=== PATIENT | male | born 1985 | race African-American/Black ===

== ENCOUNTER 2016-06-05 05:54 | Emergency (ER) | payer SELFPAY ==
[~2016-06-05] VITALS: Ht 182.9 cm; Wt 77.1 kg
[2016-06-05] MEDS ORDERED: Ketorolac 30mg Inj IV ONE (06:15)
[2016-06-05 06:30] LABS: MEAN CORPUSCULAR HEMOGLOBIN 28.9 PG (27.0-31.0); MEAN CORPUSCULAR HGB CONC 33.5 G/DL (32.0-36.0); MEAN CORPUSCULAR VOLUME 86 FL (80-99); PLATELET COUNT 207 K/UL (150-450); RED BLOOD COUNT 5.14 M/UL (4.70-6.10); RED CELL DISTRIBUTION WIDTH 12.4 % (11.6-14.8); WHITE BLOOD COUNT 11.2 K/UL (4.8-10.8)
[2016-06-05] MEDS ORDERED: Morphine Sulfate 4mg/ml Inj IVP ONE ×3 (06:30→08:45)
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
[2016-06-05 07:02] LABS: ALANINE AMINOTRANSFERASE 11 U/L (3-41); ALBUMIN/GLOBULIN RATIO 1.6 (1.0-2.7); ANION GAP 21 (5-15); ASPARTATE AMINO TRANSFERASE 19 U/L (5-40); CALCIUM 9.7 mg/dL (8.6-10.2); CARBON DIOXIDE 23 mEQ/L (20-30); CHLORIDE 95 mEQ/L (98-107); CREATININE 1.1 mg/dL (0.7-1.2); GLOMERULAR FILTRATION RATE > 60 mL/min (>60); HEMOLYSIS 7; LIPASE 28 U/L (< 60); POTASSIUM 3.7 mEQ/L (3.4-4.9); SODIUM 139 mEQ/L (135-145); TOTAL PROTEIN 7.9 g/dL (6.6-8.7)
[2016-06-05] MEDS ORDERED: Pantoprazole Inj IVP ONE (07:30)
[2016-06-05] MEDS ORDERED: HYDROmorphone 1mg/ml Carpuject IVP ONE (07:30)
[2016-06-05 07:40] VITALS: BP 111/62
[2016-06-05 08:21] VITALS: BP 94/47
[2016-06-05] MEDS ORDERED: CIPROFLOXACIN500 M2 ORAL (08:44)
[2016-06-05] MEDS ORDERED: RANITIDINE HCL150 MG ORAL (08:44)
[2016-06-05] MEDS ORDERED: NORCO 5-325 TA1 EACH ORAL (08:44)
[2016-06-05] MEDS ORDERED: ZOFRAN ODT4 MG ORAL (08:44)
[2016-06-05 08:49] VITALS: BP 94/47
== END 2016-06-05 09:01 | disposition home or self-care (01) ==
LOC: EMR 06:37
DX: K29.70 Gastritis, unspecified, without bleeding (principal)
CPT/HCPCS: 36415; 80053; 83690; 85025; 96360; 96361; 96372; 96374; 96375; 99284; C9113; J1170; J1885; J2270; J2405

== ENCOUNTER 2017-03-13 16:53 | Inpatient (IN) | payer MEDICAID ==
[~2017-03-13] VITALS: Ht 185.4 cm; Wt 72.6 kg
[~2017-03-13 16:53] MED LIST: CIPROFLOXACIN500 M2 ORAL; NORCO 5-325 TA1 EACH ORAL; RANITIDINE HCL150 MG ORAL; ZOFRAN ODT4 MG ORAL
[2017-03-13] MEDS ORDERED: HYDROmorphone 1mg/ml Carpuject IVP ONE ×2 (17:15→18:30)
[2017-03-13 17:36] LABS: HEMATOCRIT 49.5 % (42.0-52.0); HEMOGLOBIN 15.3 G/DL (14.2-18.0); MEAN CORPUSCULAR VOLUME 91 FL (80-99); PLATELET COUNT 193 K/UL (150-450); RED BLOOD COUNT 5.43 M/UL (4.70-6.10); WHITE BLOOD COUNT 12.1 K/UL (4.8-10.8)
[2017-03-13 17:53] LABS: ANION GAP 14 mmol/L (5-15); BLOOD UREA NITROGEN 17 mg/dL (7-18); CALCIUM 9.6 MG/DL (8.5-10.1); CARBON DIOXIDE 26 MMOL/L (21-32); CHLORIDE 105 MMOL/L (98-107); CREATININE 1.5 MG/DL (0.55-1.30); POTASSIUM 3.5 MMOL/L (3.5-5.1); SODIUM 145 MMOL/L (136-145)
[2017-03-13 17:58] LABS: ALANINE AMINOTRANSFERASE 18 U/L (12-78); ALBUMIN 4.7 G/DL (3.4-5.0); ALBUMIN/GLOBULIN RATIO 1.2 (1.0-2.7); ALKALINE PHOSPHATASE 63 U/L (46-116); ASPARTATE AMINO TRANSFERASE 27 U/L (15-37); BILIRUBIN,TOTAL 0.7 MG/DL (0.2-1.0)
[2017-03-13 18:39] VITALS: BP 128/86
[2017-03-13] MEDS ORDERED: Miralax 17gm pkt ORAL PRN (20:00)
[2017-03-13] MEDS ORDERED: LORazepam Inj 2mg/ml 1ml IV PRN (20:00)
[2017-03-13] MEDS ORDERED: Nitroglycerin Subl 0.4mg tab SL PRN (20:00)
[2017-03-13] MEDS ORDERED: Morphine Sulfate 2mg/ml Inj IVP PRN (20:00)
[2017-03-13] MEDS ORDERED: Mylanta II UD 30ml ORAL PRN (20:00)
--- NOTE | 2017-03-13 20:18 | Emergency Room Report ---
History of Present Illness General Chief Complaint: Abdominal Pain Source: Patient Present Illness HPI 31-year-old male presents ED complaining of abdominal pain and vomiting. Has history of pancreatitis. States he was seen at [facility] 2 days ago was given pain meds and discharged. Patient states the pain is persisting and he keeps vomiting. Patient is currently 8/10, epigastric, sharp, nonradiating. No fevers or chills. Denies chest pain shortness of breath. No other aggravating relieving factors. Denies any other associated symptoms Allergies: Coded Allergies: PROCHLORPERAZINE (Verified Allergy, Unknown, 06/05/16) Patient History Past Medical History: other - pancreatitis Past Surgical History: none Pertinent Family History: none Social History: Denies: smoking, alcohol use, drug use Immunizations: UTD Reviewed Nursing Documentation: PMH: Agreed, PSxH: Agreed Nursing Documentation-PMH Hx Gastrointestinal Problems: Yes - Pancreatitis Review of Systems All Other Systems: negative except mentioned in HPI Physical Exam Vital Signs Date Time Temp Pulse Resp B/P (MAP) Pulse Ox O2 Delivery O2 Flow Rate FiO2 03/13/17 16:57 98.1 76 20 100 Room Air 03/13/17 17:08 Sp02 EP Interpretation: reviewed, normal General Appearance: alert, GCS 15, non-toxic, moderate distress Head: normocephalic, atraumatic Eyes: bilateral eye normal inspection, bilateral eye PERRL ENT: hearing grossly normal, normal pharynx, no angioedema, normal voice Neck: full range of motion, supple/symm/no masses Respiratory: chest non-tender, lungs clear, normal breath sounds, speaking full sentences Cardiovascular #1: regular rate, rhythm, no edema Cardiovascular #2: 2+ carotid (R), 2+ carotid (L), 2+ radial (R), 2+ radial (L) , 2+ dorsalis pedis (R), 2+ dorsalis pedis (L) Gastrointestinal: normal bowel sounds, soft, non-distended, no guarding, no rebound, tenderness - epigastric Rectal: deferred Genitourinary: normal inspection, no CVA tenderness Musculoskeletal: back normal, gait/station normal, normal range of motion, non- tender Neurologic: alert, oriented x3, responsive, motor strength/tone normal, sensory intact, speech normal Psychiatric: judgement/insight normal, memory normal, mood/affect normal, no suicidal/homicidal ideation Reflexes: 3+ bicep (R), 3+ bicep (L), 3+ tricep (R), 3+ tricep (L), 3+ knee (R) , 3+ knee (L) Skin: normal color, no rash, warm/dry, well hydrated Lymphatic: no adenopathy Medical Decision Making Diagnostic Impression: Primary Impression: Pancreatitis Qualified Codes: K85.90 - Acute pancreatitis without necrosis or infection, unspecified Additional Impression: ARF (acute renal failure) Qualified Codes: N17.9 - Acute kidney failure, unspecified ER Course Hospital Course 31-year-old male presents to ED with abdominal pain, vomiting Differential diagnoses include: BPH, cystitis, pyelonephritis, kidney stone Clinical course 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 After initial history and physical I ordered labs, IV fluids, UA, pain medications Labs - no leukocytosis, Hb/Hct stable. Cr 1.5. Lipase > 977 CT abdomen pelvis deferred as patient does have CT done 2 days ago at [facility] which was negative patient continues to have pain requiring additional pain medications. Case discussed with Dr. Mix and he agreed to accept the patient to his service for further care and support I feel this is a highly complex case requiring extensive working including EKG/ Rhythm strip, Xray/CT/US, Blood/urine lab work, repeat exams while in ED, and administration of strong opiates/narcotics for pain control, admission to hospital or close patient follow up. Diagnosis - pancreatitis, ARF Patient admitted to floor in serious condition Labs Test 03/13/17 17:11 White Blood Count 12.1 K/UL (4.8-10.8) Red Blood Count 5.43 M/UL (4.70-6.10) Hemoglobin 15.3 G/DL (14.2-18.0) Hematocrit 49.5 % (42.0-52.0) Mean Corpuscular Volume 91 FL (80-99) Mean Corpuscular Hemoglobin 28.2 PG (27.0-31.0) Mean Corpuscular Hemoglobin Concent 31.0 G/DL (32.0-36.0) Red Cell Distribution Width 12.0 % (11.6-14.8) Platelet Count 193 K/UL (150-450) Mean Platelet Volume 8.9 FL (6.5-10.1) Neutrophils (%) (Auto) % (45.0-75.0) Lymphocytes (%) (Auto) % (20.0-45.0) Monocytes (%) (Auto) % (1.0-10.0) Eosinophils (%) (Auto) % (0.0-3.0) Basophils (%) (Auto) % (0.0-2.0) Differential Total Cells Counted 100 Neutrophils % (Manual) 88 % (45-75) Lymphocytes % (Manual) 8 % (20-45) Monocytes % (Manual) 3 % (1-10) Eosinophils % (Manual) 1 % (0-3) Basophils % (Manual) 0 % (0-2) Band Neutrophils 0 % (0-8) Platelet Estimate Adequate Platelet Morphology Normal Red Blood Cell Morphology Normal Sodium Level 145 MMOL/L (136-145) Potassium Level 3.5 MMOL/L (3.5-5.1) Chloride Level 105 MMOL/L (98-107) Carbon Dioxide Level 26 MMOL/L (21-32) Anion Gap 14 mmol/L (5-15) Blood Urea Nitrogen 17 mg/dL (7-18) Creatinine 1.5 MG/DL (0.55-1.30) Estimat Glomerular Filtration Rate > 60 mL/min (>60) Glucose Level 108 MG/DL (74-106) Calcium Level 9.6 MG/DL (8.5-10.1) Total Bilirubin 0.7 MG/DL (0.2-1.0) Aspartate Amino Transf (AST/SGOT) 27 U/L (15-37) Alanine Aminotransferase (ALT/SGPT) 18 U/L (12-78) Alkaline Phosphatase 63 U/L (46-116) Total Protein 8.5 G/DL (6.4-8.2) Albumin 4.7 G/DL (3.4-5.0) Globulin 3.8 g/dL Albumin/Globulin Ratio 1.2 (1.0-2.7) Lipase 977 U/L (73-393) Last Vital Signs Date Time Temp Pulse Resp B/P (MAP) Pulse Ox O2 Delivery O2 Flow Rate FiO2 03/13/17 18:39 98.0 68 20 128/86 100 Room Air Status: improved Disposition: ADMITTED INPATIENT Condition: Serious Referrals: NON PHYSICIAN (PCP) LC ZACARIAS M.D. Mar 13, 2017 20:18
[2017-03-13 20:58] VITALS: BP 109/63
[2017-03-13] MEDS: Heparin 5000 units/ml inj SUBQ SCH (21:00)
[2017-03-13 22:00] VITALS: BP 107/65
[2017-03-13 22:30] VITALS: BP 117/65
[2017-03-13] MEDS: HYDROmorphone 1mg/ml Carpuject IVP PRN (23:46)
[2017-03-13] MEDS: D5 1/2NS 1,000 ML IV SCH (23:46)
[2017-03-14] VITALS (7 sets, daily range): BP systolic 103–126; BP diastolic 51–75
[2017-03-14] MEDS: HYDROmorphone 1mg/ml Carpuject IVP PRN ×2 (03:46→08:02)
[2017-03-14 07:18] LABS: BASOPHILS % (AUTO) 0.8 % (0.0-2.0); EOSINOPHILS % (AUTO) 0.7 % (0.0-3.0); HEMATOCRIT 40.1 % (42.0-52.0); LYMPHOCYTES % (AUTO) 29.7 % (20.0-45.0); MEAN CORPUSCULAR VOLUME 90 FL (80-99); MONOCYTES % (AUTO) 6.4 % (1.0-10.0); NEUTROPHILS % (AUTO) 62.4 % (45.0-75.0); PLATELET COUNT 153 K/UL (150-450); RED BLOOD COUNT 4.47 M/UL (4.70-6.10); RED CELL DISTRIBUTION WIDTH 12.2 % (11.6-14.8); WHITE BLOOD COUNT 9.5 K/UL (4.8-10.8)
[2017-03-14 08:04] LABS: ALANINE AMINOTRANSFERASE 24 U/L (12-78); ALBUMIN 3.4 G/DL (3.4-5.0); ALBUMIN/GLOBULIN RATIO 1.1 (1.0-2.7); ALKALINE PHOSPHATASE 50 U/L (46-116); AMYLASE 108 U/L (25-115); ANION GAP 10 mmol/L (5-15); ASPARTATE AMINO TRANSFERASE 20 U/L (15-37); BILIRUBIN,TOTAL 0.8 MG/DL (0.2-1.0); BLOOD UREA NITROGEN 11 mg/dL (7-18); CALCIUM 8.6 MG/DL (8.5-10.1); CARBON DIOXIDE 26 MMOL/L (21-32); CHLORIDE 108 MMOL/L (98-107); CREATININE 1.2 MG/DL (0.55-1.30); POTASSIUM 3.7 MMOL/L (3.5-5.1); SODIUM 144 MMOL/L (136-145)
[2017-03-14] MEDS: Heparin 5000 units/ml inj SUBQ SCH (08:54)
[2017-03-14] MEDS ORDERED: Pantoprazole Inj IV SCH (09:00)
--- NOTE | 2017-03-14 10:23 | Diagnostic Imaging Report ---
Indication:Abdominal pain Technique: Grayscale and duplex Doppler imaging of the abdomen performed. Comparison: None Findings: The liver, demonstrated part of the pancreas, gallbladder, aorta and IVC, both kidneys, spleen appear unremarkable. There is no biliary ductal dilatation identified. Doppler evaluation of the main portal vein shows patency. There is no ascites. No hydronephrosis seen. CBD is 2.8 mm. Impression: No acute findings.
[2017-03-14] MEDS: D5 1/2NS 1,000 ML IV SCH (13:14)
--- NOTE | 2017-03-14 17:00 | History and Physical ---
History of Present Illness General Date patient seen: Mar 14, 2017 Reason for Hospitalization: Abdominal Pain Present Illness HPI 31-year-old male wtih of history of pancreatitis.presented to ED complaining of abdominal pain and vomiting. States he was seen at [facility] 2 days ago was given pain meds and discharged. Patient states the pain is persisting and he keeps vomiting. Patient is currently 8/10, epigastric, sharp, nonradiating. No fevers or chills. His amylase was very high. he is admitted for acute exacerbation of pancreatitis. Allergies: Coded Allergies: PROCHLORPERAZINE (Verified Allergy, Unknown, 06/05/16) Medication History Scheduled Ciprofloxacin Hcl* (Ciprofloxacin Hcl*), 500 MG ORAL Q12H Ranitidine Hcl* (Zantac*), 150 MG ORAL TWICE A DAY Scheduled PRN Hydrocodone Bit/Acetaminophen 5-325* (Kimberly 5-325*), 1 TAB ORAL Q6H PRN for For Pain Ondansetron Odt* (Zofran Odt*), 4 MG ORAL Q6H PRN for Nausea & Vomiting Patient History Healthcare decision maker Resuscitation status Full Code Advanced Directive on File Review of Systems Gastrointestinal: Reports: abdominal pain All Other Systems: negative except mentioned in HPI Physical Exam General Appearance: WD/WN Lines, tubes and drains: central line HEENT: normocephalic Neck: normal alignment Respiratory/Chest: chest wall non-tender Breasts: no masses Abdomen: normal bowel sounds Genitourinary/Rectal: normal genital exam Last 24 Hour Vital Signs Date Time Temp Pulse Resp B/P (MAP) Pulse Ox O2 Delivery O2 Flow Rate FiO2 03/14/17 16:00 98.1 75 20 119/75 98 03/14/17 11:28 97.5 54 20 116/60 99 03/14/17 08:08 98.1 59 20 103/59 98 Room Air 03/14/17 05:22 97.5 57 20 110/51 98 Room Air 03/14/17 05:16 97.5 53 20 110/71 97 Room Air 03/14/17 04:16 97.9 03/14/17 04:00 97.9 62 20 124/67 97 Room Air 03/14/17 00:04 97.9 60 20 126/68 97 Room Air 03/13/17 22:30 97.9 65 18 117/65 99 Room Air 03/13/17 22:15 98.0 68 18 109/63 100 Room Air 03/13/17 22:00 68 17 107/65 99 Room Air 03/13/17 20:58 98.0 69 18 109/63 100 Room Air 03/13/17 18:39 98.0 68 20 128/86 100 Room Air 03/13/17 17:50 98.0 03/13/17 17:08 98.1 84 20 100 Room Air Intake and Output 03/13/17 03/14/17 19:00 07:00 Intake Total 0 ml 525 ml Balance 0 ml 525 ml Intake Oral 0 ml IV Total 525 ml # Voids 3 Laboratory Tests Test 03/13/17 17:11 03/14/17 06:00 White Blood Count 12.1 K/UL (4.8-10.8) H 9.5 K/UL (4.8-10.8) Red Blood Count 5.43 M/UL (4.70-6.10) 4.47 M/UL (4.70-6.10) L Hemoglobin 15.3 G/DL (14.2-18.0) 13.0 G/DL (14.2-18.0) L Hematocrit 49.5 % (42.0-52.0) 40.1 % (42.0-52.0) L Mean Corpuscular Volume 91 FL (80-99) 90 FL (80-99) Mean Corpuscular Hemoglobin 28.2 PG (27.0-31.0) 29.2 PG (27.0-31.0) Mean Corpuscular Hemoglobin Concent 31.0 G/DL (32.0-36.0) L 32.5 G/DL (32.0-36.0) Red Cell Distribution Width 12.0 % (11.6-14.8) 12.2 % (11.6-14.8) Platelet Count 193 K/UL (150-450) 153 K/UL (150-450) Mean Platelet Volume 8.9 FL (6.5-10.1) 10.2 FL (6.5-10.1) H Neutrophils (%) (Auto) % (45.0-75.0) 62.4 % (45.0-75.0) Lymphocytes (%) (Auto) % (20.0-45.0) 29.7 % (20.0-45.0) Monocytes (%) (Auto) % (1.0-10.0) 6.4 % (1.0-10.0) Eosinophils (%) (Auto) % (0.0-3.0) 0.7 % (0.0-3.0) Basophils (%) (Auto) % (0.0-2.0) 0.8 % (0.0-2.0) Differential Total Cells Counted 100 Neutrophils % (Manual) 88 % (45-75) H Lymphocytes % (Manual) 8 % (20-45) L Monocytes % (Manual) 3 % (1-10) Eosinophils % (Manual) 1 % (0-3) Basophils % (Manual) 0 % (0-2) Band Neutrophils 0 % (0-8) Platelet Estimate Adequate Platelet Morphology Normal Red Blood Cell Morphology Normal Sodium Level 145 MMOL/L (136-145) 144 MMOL/L (136-145) Potassium Level 3.5 MMOL/L (3.5-5.1) 3.7 MMOL/L (3.5-5.1) Chloride Level 105 MMOL/L (98-107) 108 MMOL/L (98-107) H Carbon Dioxide Level 26 MMOL/L (21-32) 26 MMOL/L (21-32) Anion Gap 14 mmol/L (5-15) 10 mmol/L (5-15) Blood Urea Nitrogen 17 mg/dL (7-18) 11 mg/dL (7-18) Creatinine 1.5 MG/DL (0.55-1.30) H 1.2 MG/DL (0.55-1.30) Estimat Glomerular Filtration Rate > 60 mL/min (>60) > 60 mL/min (>60) Glucose Level 108 MG/DL (74-106) H 86 MG/DL (74-106) Calcium Level 9.6 MG/DL (8.5-10.1) 8.6 MG/DL (8.5-10.1) Total Bilirubin 0.7 MG/DL (0.2-1.0) 0.8 MG/DL (0.2-1.0) Aspartate Amino Transf (AST/SGOT) 27 U/L (15-37) 20 U/L (15-37) Alanine Aminotransferase (ALT/SGPT) 18 U/L (12-78) 24 U/L (12-78) Alkaline Phosphatase 63 U/L (46-116) 50 U/L (46-116) Total Protein 8.5 G/DL (6.4-8.2) H 6.5 G/DL (6.4-8.2) Albumin 4.7 G/DL (3.4-5.0) 3.4 G/DL (3.4-5.0) Globulin 3.8 g/dL 3.1 g/dL Albumin/Globulin Ratio 1.2 (1.0-2.7) 1.1 (1.0-2.7) Lipase 977 U/L (73-393) H 108 U/L (73-393) Activated Partial Thromboplast Time 26 SEC (23-33) Amylase Level 108 U/L (25-115) Height (Feet): 6 Height (Inches): 1.00 Weight (Pounds): 160 Medications Current Medications Medications (Trade) Dose Ordered Sig/Lisha Route PRN Reason Start Time Stop Time Status Last Admin Dose Admin Acetaminophen (Tylenol) 650 mg Q4H PRN ORAL fever 03/13/17 20:00 04/12/17 19:59 Al Hydroxide/Mg Hydroxide (Mylanta II) 30 ml Q6H PRN ORAL dyspepsia 03/13/17 20:00 04/12/17 19:59 Dextrose (Dextrose 50%) STAT PRN IV Hypoglycemia 03/13/17 20:00 04/12/17 19:59 Dextrose/Sodium Chloride 1,000 ml @ 75 mls/hr [id number] IV 03/13/17 23:30 04/12/17 23:29 03/14/17 13:14 Diphenhydramine HCl (Benadryl) 25 mg Q6H PRN ORAL Itching/Pruritis 03/13/17 20:00 04/12/17 19:59 Heparin Sodium (Porcine) (Heparin 5000 units/ml) 5,000 units EVERY 12 HOURS SUBQ 03/13/17 21:00 04/12/17 20:59 Hydromorphone HCl (Dilaudid) 1 mg Q3H PRN IVP For Pain 03/13/17 23:00 03/20/17 22:59 03/14/17 08:02 Lorazepam (Ativan 2mg/ml 1ml) 1 mg Q4H PRN IV agitation 03/13/17 20:00 03/20/17 19:59 Nitroglycerin (Ntg) 0.4 mg Q5M X 3 DOSES PRN SL Prn Chest Pain 03/13/17 20:00 04/12/17 19:59 Ondansetron HCl (Zofran) 4 mg Q6H PRN IVP Nausea & Vomiting 03/13/17 20:00 04/12/17 19:59 03/14/17 09:13 Pantoprazole (Protonix) 40 mg DAILY IV 03/14/17 09:00 04/13/17 08:59 03/14/17 08:54 Polyethylene Glycol (Miralax) 17 gm HSPRN PRN ORAL Constipation 03/13/17 20:00 04/12/17 19:59 Temazepam (Restoril) 15 mg HSPRN PRN ORAL Insomnia 03/13/17 20:00 03/20/17 19:59 03/13/17 23:45 Assessment/Plan Problem List: (1) Pancreatitis ICD Codes: K85.90 - Acute pancreatitis without necrosis or infection, unspecified SNOMED: [id number] Qualifiers: Qualified Codes: K85.90 - Acute pancreatitis without necrosis or infection, unspecified Assessment/Plan npo IV fluids check electrolytes GI evaluation ISAAC JOHNSTON Mar 14, 2017 17:00
--- NOTE | 2017-03-14 17:45 | GI Initial Consult Note ---
History of Present Illness General Date patient seen: Mar 14, 2017 Time patient seen: 17:39 Reason for Hospitalization: Abdominal Pain Referring physician: ISAAC PARKER Reason for Consultation: PANCREATITIS Present Illness HPI 31-year-old male presents ED complaining of abdominal pain and vomiting. Has history of pancreatitis. States he was seen at [facility] 2 days ago was given pain meds and discharged. Patient states the pain is persisting and he keeps vomiting. Patient is currently 8/10, epigastric, sharp, nonradiating. No fevers or chills. Denies chest pain shortness of breath. No other aggravating relieving factors. Denies any other associated symptoms GI consulted for pancreatitis. HPI noted above. Pt seen on floor, awake A& Ox4 NAD with no active s/sx of N/V/D. States his abdominal pain has improved. Stated he was recently admitted to [facility] after ETOH intake, was given dilaudid and then discharged. CT and labs reviewed from [facility] showed normal CT AP and normal lipase levels. MJ user. Denies any recent use of drugs or ETOH. Had multiple episodes of vomiting yesterday. Denies hematemesis or coffee grounds. Presented today with elevated lipase levels 900, now normal. No known history of endoscopy / colonoscopy. Home Meds Active Scripts Ondansetron Odt* (ZOFRAN ODT*) 4 Mg Tab.rapdis, 4 MG ORAL Q6H Y for Nausea & Vomiting, #30 TAB 0 Refills Prov:LC ZACARIAS M.D. 06/05/16 Ranitidine Hcl* (ZANTAC*) 150 Mg Tablet, 150 MG ORAL TWICE A DAY, #30 TAB Prov:LC ZACARIAS M.D. 06/05/16 Ciprofloxacin Hcl* (CIPROFLOXACIN HCL*) 500 Mg Tablet, 500 MG ORAL Q12H, #14 TAB 0 Refills Prov:LC ZACARIAS M.D. 06/05/16 Hydrocodone Bit/Acetaminophen 5-325* (NORCO 5-325*) 1 Each Tablet, 1 TAB ORAL Q6H Y for For Pain, #10 TAB 0 Refills Prov:LC ZACARIAS M.D. 06/05/16 Med list reviewed/reconciled: Yes Allergies: Coded Allergies: PROCHLORPERAZINE (Verified Allergy, Unknown, 06/05/16) Patient History History Provided By: Patient, Medical Record PMH Narrative Past Medical History: other - pancreatitis Past Surgical History: none Pertinent Family History: none Social History: Denies: smoking, alcohol use, drug use Immunizations: UTD Reviewed Nursing Documentation: PMH: Agreed, PSxH: Agreed Nursing Documentation-PMH Hx Gastrointestinal Problems: Yes - Pancreatitis Social History: Reports: alcohol use, drug use Review of Systems All Other Systems: negative except mentioned in HPI Physical Exam Vital Signs Date Time Temp Pulse Resp B/P (MAP) Pulse Ox O2 Delivery O2 Flow Rate FiO2 03/13/17 16:57 98.1 76 20 100 Room Air 03/13/17 17:08 Sp02 EP Interpretation: reviewed, normal Labs Laboratory Tests Test 03/14/17 06:00 White Blood Count 9.5 K/UL (4.8-10.8) Red Blood Count 4.47 M/UL (4.70-6.10) L Hemoglobin 13.0 G/DL (14.2-18.0) L Hematocrit 40.1 % (42.0-52.0) L Mean Corpuscular Volume 90 FL (80-99) Mean Corpuscular Hemoglobin 29.2 PG (27.0-31.0) Mean Corpuscular Hemoglobin Concent 32.5 G/DL (32.0-36.0) Red Cell Distribution Width 12.2 % (11.6-14.8) Platelet Count 153 K/UL (150-450) Mean Platelet Volume 10.2 FL (6.5-10.1) H Neutrophils (%) (Auto) 62.4 % (45.0-75.0) Lymphocytes (%) (Auto) 29.7 % (20.0-45.0) Monocytes (%) (Auto) 6.4 % (1.0-10.0) Eosinophils (%) (Auto) 0.7 % (0.0-3.0) Basophils (%) (Auto) 0.8 % (0.0-2.0) Activated Partial Thromboplast Time 26 SEC (23-33) Sodium Level 144 MMOL/L (136-145) Potassium Level 3.7 MMOL/L (3.5-5.1) Chloride Level 108 MMOL/L (98-107) H Carbon Dioxide Level 26 MMOL/L (21-32) Anion Gap 10 mmol/L (5-15) Blood Urea Nitrogen 11 mg/dL (7-18) Creatinine 1.2 MG/DL (0.55-1.30) Estimat Glomerular Filtration Rate > 60 mL/min (>60) Glucose Level 86 MG/DL (74-106) Calcium Level 8.6 MG/DL (8.5-10.1) Total Bilirubin 0.8 MG/DL (0.2-1.0) Aspartate Amino Transf (AST/SGOT) 20 U/L (15-37) Alanine Aminotransferase (ALT/SGPT) 24 U/L (12-78) Alkaline Phosphatase 50 U/L (46-116) Total Protein 6.5 G/DL (6.4-8.2) Albumin 3.4 G/DL (3.4-5.0) Globulin 3.1 g/dL Albumin/Globulin Ratio 1.1 (1.0-2.7) Amylase Level 108 U/L (25-115) Lipase 108 U/L (73-393) General Appearance: well appearing, no apparent distress, alert Head: normocephalic EENT: PERRL/EOMI, normal ENT inspection Neck: supple Respiratory: normal breath sounds, no respiratory distress Cardiovascular: normal rate Gastrointestinal: normal inspection, non tender, soft, normal bowel sounds, non -distended Rectal: deferred Genitourinary: deferred Musculoskeletal: normal inspection, back normal Neurologic: normal inspection, alert, oriented x3, responsive Psychiatric: normal inspection, judgement/insight normal, memory normal Skin: normal inspection, normal color, no rash, warm/dry, palpation normal, well hydrated Lymphatic: normal inspection, no adenopathy Current Medications Current Medications Medications (Trade) Dose Ordered Sig/Lisha Route PRN Reason Start Time Stop Time Status Last Admin Dose Admin Acetaminophen (Tylenol) 650 mg Q4H PRN ORAL fever 03/13/17 20:00 04/12/17 19:59 Al Hydroxide/Mg Hydroxide (Mylanta II) 30 ml Q6H PRN ORAL dyspepsia 03/13/17 20:00 04/12/17 19:59 Dextrose (Dextrose 50%) STAT PRN IV Hypoglycemia 03/13/17 20:00 04/12/17 19:59 Dextrose/Sodium Chloride 1,000 ml @ 75 mls/hr [id number] IV 1/15/18 23:30 04/12/17 23:29 03/14/17 13:14 Diphenhydramine HCl (Benadryl) 25 mg Q6H PRN ORAL Itching/Pruritis 03/13/17 20:00 04/12/17 19:59 Heparin Sodium (Porcine) (Heparin 5000 units/ml) 5,000 units EVERY 12 HOURS SUBQ 03/13/17 21:00 04/12/17 20:59 Hydromorphone HCl (Dilaudid) 1 mg Q3H PRN IVP For Pain 03/13/17 23:00 03/20/17 22:59 03/14/17 08:02 Lorazepam (Ativan 2mg/ml 1ml) 1 mg Q4H PRN IV agitation 03/13/17 20:00 03/20/17 19:59 Nitroglycerin (Ntg) 0.4 mg Q5M X 3 DOSES PRN SL Prn Chest Pain 03/13/17 20:00 04/12/17 19:59 Ondansetron HCl (Zofran) 4 mg Q6H PRN IVP Nausea & Vomiting 03/13/17 20:00 04/12/17 19:59 03/14/17 09:13 Pantoprazole (Protonix) 40 mg DAILY IV 03/14/17 09:00 04/13/17 08:59 03/14/17 08:54 Polyethylene Glycol (Miralax) 17 gm HSPRN PRN ORAL Constipation 03/13/17 20:00 04/12/17 19:59 Temazepam (Restoril) 15 mg HSPRN PRN ORAL Insomnia 03/13/17 20:00 03/20/17 19:59 03/13/17 23:45 GI: Plan Problems: (1) Alcoholic pancreatitis (2) Cyclic vomiting syndrome (3) Pancreatitis (4) Gastritis Plan elevated lipase most likely from extensive vomiting >> levels now normal okay for DC per GI standpoint if tolerates dinner >> able to tolerate CLD for lunch symptomatic treatment fu utox fu labs ppi pain mgmt zofran prn MJ and ETOH avoidance education given and acknowledged Discussed with Dr. Gaspar. Thank you for this patient referral, we will follow. [place] N.P. Mar 14, 2017 17:45
--- NOTE | 2017-03-16 10:55 | Discharge Summary ---
Discharge Summary Hospital Course Date of Admission Mar 13, 2017 at 19:31 Date of Discharge Mar 14, 2017 at 19:39 Admitting Diagnosis PANCREATITIS HPI Wisam Regalado is a 31 year old male who was admitted on Mar 13, 2017 at 19:31 for Pancreatitis Hospital Course [id number] Discharge Discharge Disposition Patient was discharged to Home (01) Discharge Diagnoses: Jennifer Vivas NP Mar 16, 2017 10:55
--- NOTE | 2017-03-16 16:01 | Discharge Summary 2 SIG ---
DATE OF ADMISSION: 03/13/2017 DATE OF DISCHARGE: 03/14/2017 [employer]: Andi Gaspar M.D. BRIEF HOSPITAL COURSE: The patient is a 31-year-old male with history of pancreatitis, presented to ED complaining of abdominal pain and vomiting. He was seen at [facility] two days prior and was given pain medications and was discharged. He stated the pain persisted and kept on vomiting. Pain was described to be epigastric in location, 8/10, and sharp. On evaluation at ED, lipase was markedly elevated. There was a slight leukocytosis 12.1 and creatinine was 1.5. He had a recent CT of the abdomen done at [facility], which was apparently negative. He continued to have pain requiring additional medications. He was then admitted to medical floor for acute pancreatitis and kidney injury. He was seen by Dr. Gaspar. Abdominal ultrasound done showed no acute findings. Pancreas, gallbladder, aorta, IVC, kidney, and spleen were unremarkable. Lipase normalized. His diet was advanced. Urine drug screen was positive for marijuana and benzodiazepine. He was tolerating diet well and was eventually discharged home. FINAL DIAGNOSES: 1. Acute pancreatitis, resolved. 2. Acute kidney injury, resolved. 3. Gastritis. 4. Cyclic vomiting syndrome. DISPOSITION: The patient was discharged home. DISCHARGE MEDICATIONS: Continue with Zofran and ranitidine. DISCHARGE INSTRUCTIONS: Follow up with PMD in a week. Maryjane Mix M.D. I have been assigned to dictate discharge summary on this account and I was not involved in the patient's management. Jennifer Vivas N.P. DR: LOIDA JOB#: [id number] CC: DENIS
== END 2017-03-14 19:39 | disposition home or self-care (01) | DRG 282 ==
LOC: EMR 19:27 → 4W 19:31 → EDBEDREQ 21:51
DX: K85.90 Acute pancreatitis without necrosis or infection, unspecified (principal); N17.9 Acute kidney failure, unspecified; Z88.8 Allergy status to other drugs, medicaments and biological substances; K29.70 Gastritis, unspecified, without bleeding; G43.A0 Cyclical vomiting, in migraine, not intractable
CPT/HCPCS: 36415; 76700; 80053; 80307; 82150; 83690; 85007; 85025; 85730; 99285; J2405

== ENCOUNTER 2017-03-17 19:40 | Emergency (ER) | payer MEDICAID ==
[~2017-03-17] VITALS: Ht 182.9 cm; Wt 72.6 kg
[2017-03-17 20:00] VITALS: BP 103/52
[2017-03-17] MEDS ORDERED: Ketorolac 30mg Inj IV ONE (20:00)
[2017-03-17] MEDS ORDERED: HYDROmorphone 1mg/ml Carpuject IVP ONE (20:00)
[2017-03-17 20:47] LABS: BASOPHILS % (AUTO) 0.6 % (0.0-2.0); EOSINOPHILS % (AUTO) 0.1 % (0.0-3.0); HEMOGLOBIN 11.6 G/DL (14.2-18.0); LYMPHOCYTES % (AUTO) 4.5 % (20.0-45.0); MEAN CORPUSCULAR VOLUME 87 FL (80-99); MONOCYTES % (AUTO) 12.2 % (1.0-10.0); NEUTROPHILS % (AUTO) 82.7 % (45.0-75.0); PLATELET COUNT 105 K/UL (150-450); RED CELL DISTRIBUTION WIDTH 11.8 % (11.6-14.8); WHITE BLOOD COUNT 5.8 K/UL (4.8-10.8)
[2017-03-17 21:14] LABS: ANION GAP 12 mmol/L (5-15); BLOOD UREA NITROGEN 7 mg/dL (7-18); CALCIUM 9.6 MG/DL (8.5-10.1); CARBON DIOXIDE 25 MMOL/L (21-32); CHLORIDE 104 MMOL/L (98-107); CREATININE 1.2 MG/DL (0.55-1.30); POTASSIUM 4.1 MMOL/L (3.5-5.1); SODIUM 141 MMOL/L (136-145)
[2017-03-17 21:18] LABS: ALANINE AMINOTRANSFERASE 27 U/L (12-78); ALBUMIN 4.5 G/DL (3.4-5.0); ALBUMIN/GLOBULIN RATIO 1.3 (1.0-2.7); ALKALINE PHOSPHATASE 60 U/L (46-116); ASPARTATE AMINO TRANSFERASE 26 U/L (15-37); BILIRUBIN,TOTAL 0.5 MG/DL (0.2-1.0)
[2017-03-17] MEDS ORDERED: RANITIDINE HCL150 MG ORAL (21:36)
[2017-03-17] MEDS ORDERED: ZOFRAN ODT4 MG ORAL (21:36)
[2017-03-17] MEDS ORDERED: NORCO 5-325 TA1 EACH ORAL (21:36)
[2017-03-17 21:45] VITALS: BP 109/53
--- NOTE | 2017-03-19 07:28 | Emergency Room Report ---
History of Present Illness General Chief Complaint: Abdominal Pain Source: Patient Present Illness HPI 31-year-old male presents to ED for evaluation. Patient presents in distress, crying and abdominal pain. States it started today. States he has pancreatitis. Pain is a 10 out of 10, sharp, nonradiating. Patient has been here previously for similar presentation. patient used to go to [facility] and was getting Demerol for pain. Denies or drug use. Denies chest pain shortness of breath. No aggravating relieving factors. Denies any other associated symptoms Allergies: Coded Allergies: PROCHLORPERAZINE (Verified Allergy, Unknown, 06/05/16) Patient History Past Medical History: other - pancreatitis Past Surgical History: none Pertinent Family History: none Social History: Denies: smoking, alcohol use, drug use Immunizations: UTD Reviewed Nursing Documentation: PMH: Agreed, PSxH: Agreed Nursing Documentation-PMH Past Medical History: No History, Except For Hx Cardiac Problems: No Hx Cancer: No Hx Gastrointestinal Problems: Yes - Pancreatitis Hx Neurological Problems: No Review of Systems All Other Systems: negative except mentioned in HPI Physical Exam Vital Signs Date Time Temp Pulse Resp B/P (MAP) Pulse Ox O2 Delivery O2 Flow Rate FiO2 03/17/17 19:45 98.4 77 25 123/91 100 Room Air Sp02 EP Interpretation: reviewed, normal General Appearance: alert, moderate distress Head: normocephalic Eyes: bilateral eye normal inspection, bilateral eye PERRL ENT: normal ENT inspection Neck: normal inspection Respiratory: chest non-tender, lungs clear, normal breath sounds, speaking full sentences Cardiovascular #1: regular rate, rhythm, no edema Gastrointestinal: normal bowel sounds, soft, non-distended, no guarding, no rebound, tenderness - epigastric Rectal: deferred Genitourinary: no CVA tenderness Musculoskeletal: normal inspection Neurologic: alert, oriented x3, responsive, motor strength/tone normal, sensory intact, speech normal Psychiatric: anxious Skin: normal inspection Lymphatic: normal inspection Medical Decision Making Diagnostic Impression: Primary Impression: Gastritis Qualified Codes: K29.20 - Alcoholic gastritis without bleeding Additional Impression: Cyclic vomiting syndrome Qualified Codes: G43.A0 - Cyclical vomiting, not intractable ER Course Hospital Course 31-year-old M presents to ED with epigastric pain with N/V. differential diagnosis: gastritis, SBO, cholecystits Clinical course Patient placed on stretcher. 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 After initial history and physical I ordered labs, IV fluids, Zofran and pepcid, dilaudid Labs - no leukocytosis, no electrolyte abnormalities, LFTs normal Patient was recently admitted to [facility] for pancreatitis. At that time lipase was 977. Lipase is normal today. I do believe there is is a drug-seeking component. Patient has had positive tox screen for the past. History of alcohol abuse. However I am unable to find any history of narcotic abuse in [facility]. Anxiety can be also contributing to this presentation On reassessment pain is improved. Tolerating by mouth intake. Stable for discharge I feel this is a highly complex case requiring extensive working including EKG/ Rhythm strip, Xray/CT/US, Blood/urine lab work, repeat exams while in ED, and administration of strong opiates/narcotics for pain control, admission to hospital or close patient follow up. Diagnosis - gastritis, cyclical vomiting syndrome Stable and discharged to home with prescriptions for zofran, zantac, [place]. Followup with PMD. Return to ED if symptoms recur or worsen Labs Test 03/17/17 20:05 White Blood Count 5.8 K/UL (4.8-10.8) Red Blood Count 4.00 M/UL (4.70-6.10) Hemoglobin 11.6 G/DL (14.2-18.0) Hematocrit 35.0 % (42.0-52.0) Mean Corpuscular Volume 87 FL (80-99) Mean Corpuscular Hemoglobin 29.1 PG (27.0-31.0) Mean Corpuscular Hemoglobin Concent 33.2 G/DL (32.0-36.0) Red Cell Distribution Width 11.8 % (11.6-14.8) Platelet Count 105 K/UL (150-450) Mean Platelet Volume 9.4 FL (6.5-10.1) Neutrophils (%) (Auto) 82.7 % (45.0-75.0) Lymphocytes (%) (Auto) 4.5 % (20.0-45.0) Monocytes (%) (Auto) 12.2 % (1.0-10.0) Eosinophils (%) (Auto) 0.1 % (0.0-3.0) Basophils (%) (Auto) 0.6 % (0.0-2.0) Sodium Level 141 MMOL/L (136-145) Potassium Level 4.1 MMOL/L (3.5-5.1) Chloride Level 104 MMOL/L (98-107) Carbon Dioxide Level 25 MMOL/L (21-32) Anion Gap 12 mmol/L (5-15) Blood Urea Nitrogen 7 mg/dL (7-18) Creatinine 1.2 MG/DL (0.55-1.30) Estimat Glomerular Filtration Rate > 60 mL/min (>60) Glucose Level 103 MG/DL (74-106) Calcium Level 9.6 MG/DL (8.5-10.1) Total Bilirubin 0.5 MG/DL (0.2-1.0) Aspartate Amino Transf (AST/SGOT) 26 U/L (15-37) Alanine Aminotransferase (ALT/SGPT) 27 U/L (12-78) Alkaline Phosphatase 60 U/L (46-116) Total Protein 7.9 G/DL (6.4-8.2) Albumin 4.5 G/DL (3.4-5.0) Globulin 3.4 g/dL Albumin/Globulin Ratio 1.3 (1.0-2.7) Lipase 110 U/L (73-393) Last Vital Signs Date Time Temp Pulse Resp B/P (MAP) Pulse Ox O2 Delivery O2 Flow Rate FiO2 03/17/17 21:45 93 27 109/53 100 Room Air 03/17/17 20:00 98.4 Status: improved Disposition: HOME, SELF-CARE Condition: Stable Referrals: NOT CHOSEN IPA/MD,REFERRING (PCP) Patient Instructions: Gastritis, Adult, Lipase Test LC ZACARIAS M.D. Mar 19, 2017 07:28
== END 2017-03-17 22:00 | disposition home or self-care (01) ==
LOC: EMR 21:55
DX: K29.20 Alcoholic gastritis without bleeding (principal); G43.A0 Cyclical vomiting, in migraine, not intractable; Z88.8 Allergy status to other drugs, medicaments and biological substances
CPT/HCPCS: 36415; 80053; 83690; 85025; 96374; 96375; 99284; J1170; J1885; S0028

== ENCOUNTER 2017-03-19 01:35 | Emergency (ER) | payer MEDICAID ==
[~2017-03-19] VITALS: Ht 182.9 cm; Wt 72.6 kg
[2017-03-19] MEDS ORDERED: Ketorolac 30mg Inj IV ONE (02:00)
[2017-03-19 02:20] LABS: HEMATOCRIT 45.7 % (42.0-52.0); HEMOGLOBIN 14.9 G/DL (14.2-18.0); MEAN CORPUSCULAR VOLUME 86 FL (80-99); PLATELET COUNT 132 K/UL (150-450); RED BLOOD COUNT 5.31 M/UL (4.70-6.10); RED CELL DISTRIBUTION WIDTH 11.6 % (11.6-14.8)
[2017-03-19 02:32] LABS: BILIRUBIN, URINE NEGATIVE (NEGATIVE); GLUCOSE, URINE (UA) NEGATIVE (NEGATIVE); KETONES,URINE 4+ (NEGATIVE); LEUKOCYTE ESTERASE ,URINE NEGATIVE (NEGATIVE); NITRITE,URINE NEGATIVE (NEGATIVE); PH,URINE 7 (4.5-8.0); PROTEIN,URINE 1+ (NEGATIVE); UROBILINOGEN,URINE NORMAL MG/DL (0.0-1.0)
--- NOTE | 2017-03-19 02:32 | Emergency Room Report ---
History of Present Illness General Chief Complaint: Abdominal Pain Source: Patient, Medical Record Present Illness HPI Is a 31-year-old male who said he has a history of pancreatitis. He's been here several times in the last 2 days already. He was admitted with negative workup. He had supposedly and negative CT scan a few days ago at [facility]. He had this problem before. Pain is diffuse in nature. 10 out of 10. No nausea no vomiting. No fever or chills. Nothing made it better. Nothing made it worse. Last episode before this week was about few months ago in September. Allergies: Coded Allergies: PROCHLORPERAZINE (Verified Allergy, Unknown, 06/05/16) Patient History Past Medical History: see triage record, old chart reviewed Past Surgical History: none Pertinent Family History: none Social History: Reports: drug use - Marijuana Immunizations: other Reviewed Nursing Documentation: PMH: Agreed, PSxH: Agreed Nursing Documentation-PMH Hx Cardiac Problems: No Hx Cancer: No Hx Gastrointestinal Problems: Yes - Pancreatitis Hx Neurological Problems: No Review of Systems Eye: Denies: eye pain, blurred vision ENT: Denies: ear pain, nose congestion, throat swelling Respiratory: Denies: cough, shortness of breath Cardiovascular: Denies: chest pain, palpitations Gastrointestinal: Reports: abdominal pain, nausea, vomiting, Denies: diarrhea Musculoskeletal: Denies: back pain, joint pain Skin: Denies: rash Neurological: Denies: headache, numbness Endocrine: Denies: increased thirst, increased urine Hematologic/Lymphatic: Denies: easy bruising All Other Systems: negative except mentioned in HPI Physical Exam Vital Signs Date Time Temp Pulse Resp B/P (MAP) Pulse Ox O2 Delivery O2 Flow Rate FiO2 03/19/17 01:46 99.1 64 15 112/61 97 vitals normal Sp02 EP Interpretation: reviewed, normal General Appearance: well appearing, no apparent distress, alert Head: normocephalic, atraumatic Eyes: bilateral eye PERRL, bilateral eye EOMI ENT: hearing grossly normal, normal pharynx Neck: full range of motion, supple, no meningismus Respiratory: chest non-tender, lungs clear, normal breath sounds Cardiovascular #1: regular rate, rhythm, no murmur Gastrointestinal: normal bowel sounds, non tender, no mass, no organomegaly, no bruit, non-distended Musculoskeletal: back normal, gait/station normal, normal range of motion Psychiatric: mood/affect normal Skin: warm/dry Medical Decision Making Diagnostic Impression: Primary Impression: Abdominal pain of unknown etiology Additional Impression: Pneumonia Qualified Codes: J18.9 - Pneumonia, unspecified organism ER Course Patient with abdominal pain. Unknown etiology. Differential include cyclic vomiting syndrome, inflammatory bowel disease, neoplastic process to name a few. No evidence of obstruction. Clinically no evidence of appendicitis. He has no pain localized in the right lower quadrant. He does have a cough for about a week. I will go into him on antibiotics. Lab Results Impression labs unremarkable CT/MRI/US Diagnostic Results CT/MRI/US Diagnostic Results : Imaging Test Ordered: CT abdomen and pelvis Impression Read by radiologist. Multiple opacity in the lower lung. No obstruction. Last Vital Signs Date Time Temp Pulse Resp B/P (MAP) Pulse Ox O2 Delivery O2 Flow Rate FiO2 03/19/17 01:46 99.1 64 15 112/61 97 Status: improved Disposition: HOME, SELF-CARE Condition: Stable Scripts Azithromycin* (ZITHROMAX*) 250 Mg Tablet 250 MG ORAL DAILY, #6 TAB 0 Refills Take two tablets by mouth today, then take one tablet by mouth daily for four days Prov: MARTHA ASHLEY M.D. 03/19/17 Dicyclomine Hcl* (BENTYL*) 10 Mg Capsule 10 MG ORAL FOUR TIMES A DAY, #30 CAP Prov: MARTHA ASHLEY M.D. 03/19/17 Referrals: NOT CHOSEN IPA/,REFERRING (PCP) Patient Instructions: Abdominal Pain, Adult Additional Instructions: Followup with your DrGeneva in 2-3 days. Keep your appointment with GI on Monday. Return if worse. MARTHA ASHLEY M.D. Mar 19, 2017 02:32
[2017-03-19 02:43] LABS: APPEARANCE,URINE CLEAR; COLOR,URINE YELLOW
[2017-03-19 02:45] LABS: ANION GAP 14 mmol/L (5-15); BLOOD UREA NITROGEN 8 mg/dL (7-18); CALCIUM 8.9 MG/DL (8.5-10.1); CARBON DIOXIDE 23 MMOL/L (21-32); CHLORIDE 102 MMOL/L (98-107); CREATININE 1.2 MG/DL (0.55-1.30); POTASSIUM 3.3 MMOL/L (3.5-5.1); SODIUM 139 MMOL/L (136-145)
[2017-03-19 02:50] LABS: ALANINE AMINOTRANSFERASE 22 U/L (12-78); ALBUMIN 4.2 G/DL (3.4-5.0); ALBUMIN/GLOBULIN RATIO 1.2 (1.0-2.7); ALKALINE PHOSPHATASE 60 U/L (46-116); ASPARTATE AMINO TRANSFERASE 30 U/L (15-37); BILIRUBIN,TOTAL 0.4 MG/DL (0.2-1.0)
[2017-03-19] MEDS ORDERED: AZITHROMYCIN250 MG ORAL (05:59)
[2017-03-19] MEDS ORDERED: BENTYL10 MG ORAL (05:59)
[2017-03-19] MEDS ORDERED: HYDROmorphone 1mg/ml Carpuject IVP ONE (06:00)
[2017-03-19 06:19] VITALS: BP 110/62
--- NOTE | 2017-03-19 08:11 | Diagnostic Imaging Report ---
Indication: Reason For Exam: ABD PAIN Technique: CT scan of the abdomen and pelvis was performed from the diaphragms to the symphysis pubis with intravenous contrast material only per specific request of the ordering physician.. 5 mm sections were generated. Axial, coronal, and sagittal images are presented. Dose: Total Dose Length Product - DLP [address] Dose Index - CTDIvol(s) 11.66 mGy. Automated exposure control was utilized for dose reduction. Comparison: None Findings: There is airspace disease in the right middle lobe with some patchy nodular airspace disease as well in the left lower lobe. The liver, gallbladder, and spleen are unremarkable. The pancreas is normal. Adrenal glands are unremarkable. The kidneys are normal. Aorta and inferior vena cava are normal caliber. Retroperitoneum is free of adenopathy. The appendix is dilated and filled with fluid. However, there is air in the tip of the appendix and there is no periappendiceal inflammatory change the bladder is collapsed. Prostate and seminal vesicles are normal. The bowel is normal. The remainder the exam is unremarkable. Impression: Wheezing the lungs most consistent with right middle lobe and left lower lobe pneumonia. Slightly enlarged appendix containing fluid and air. There is no wall thickening or periappendiceal inflammatory change. This is likely a normal variant. Correlation suggested. Otherwise negative. The above report is concordant with preliminary reading by [employer] . . The CT scanner at [facility] is accredited by the [employer] and the scans are performed using protocols designed to limit radiation exposure to as low as reasonably achievable to attain images of sufficient resolution adequate for diagnostic evaluation.
== END 2017-03-19 06:19 | disposition home or self-care (01) ==
LOC: EMR 02:00
DX: R10.9 Unspecified abdominal pain (principal); J18.9 Pneumonia, unspecified organism; Z88.8 Allergy status to other drugs, medicaments and biological substances
CPT/HCPCS: 36415; 74177; 80053; 81003; 83690; 85007; 85025; 96361; 96374; 96375; 99284; J1170; J1885; J2550; Q9967

== ENCOUNTER 2017-03-25 07:44 | Emergency (ER) | payer MEDICAID ==
[~2017-03-25] VITALS: Ht 182.9 cm; Wt 68.0 kg
[~2017-03-25 07:44] MED LIST changes: +AZITHROMYCIN250 MG ORAL; +BENTYL10 MG ORAL
[2017-03-25] MEDS ORDERED: LORazepam Inj 2mg/ml 1ml IV ONE (08:00)
[2017-03-25] MEDS ORDERED: DiphenhydrAMINE 50mg/ml Inj IVP ONE (08:00)
--- NOTE | 2017-03-25 08:01 | Emergency Room Report ---
History of Present Illness General Chief Complaint: Abdominal Pain Source: Patient, Medical Record Present Illness HPI Patient presents with complaints of mid epigastric abdominal pain Started approximately 3:00 morning Pain is severe 10 out of 10 Denies any radiation Denies any chest pain or shortness of breath Patient has increased nausea denies any diarrhea denies any fevers or chills Denies any trauma Reports that he was doing well for about one week Patient has had previous abdominal pain without much knowledge of diagnosis He does report that he was diagnosed with pancreatitis previously Patient has had previous hospitalizations as well Allergies: Coded Allergies: PROCHLORPERAZINE (Verified Allergy, Unknown, 06/05/16) Patient History Past Medical History: see triage record Pertinent Family History: none Reviewed Nursing Documentation: PMH: Agreed, PSxH: Agreed Nursing Documentation-PMH Past Medical History: No History, Except For Hx Cardiac Problems: No Hx Cancer: No Hx Gastrointestinal Problems: Yes - Pancreatitis Hx Neurological Problems: No Review of Systems All Other Systems: negative except mentioned in HPI Physical Exam Vital Signs Date Time Temp Pulse Resp B/P (MAP) Pulse Ox O2 Delivery O2 Flow Rate FiO2 03/25/17 07:48 97.2 64 18 116/69 99 Room Air Sp02 EP Interpretation: reviewed, normal General Appearance: mild distress - Initially presented somewhat histrionic Head: normocephalic, atraumatic Eyes: bilateral eye PERRL, bilateral eye EOMI ENT: hearing grossly normal, normal pharynx, TMs + canals normal, uvula midline Neck: full range of motion, supple, no meningismus, no bony tend Respiratory: lungs clear, normal breath sounds, no rhonchi, no respiratory distress, no retraction, no accessory muscle use Cardiovascular #1: normal peripheral pulses, regular rate, rhythm, no edema, no gallop, no JVD, no murmur Gastrointestinal: normal bowel sounds, non tender - However subjectively points to epigastric region, soft, no mass, no organomegaly, non-distended, no guarding, no hernia, no pulsatile mass, no rebound Genitourinary: no CVA tenderness Musculoskeletal: normal inspection Neurologic: oriented x3, responsive, 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 inspector III-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 tested, motor strength/ tone normal, sensory intact Psychiatric: other - Initially somewhat histrionic, patient writhing around gurney however with focused questioning is able to be calm and answer questions, Skin: normal color, no rash, warm/dry, palpation normal Lymphatic: normal inspection, no adenopathy Medical Decision Making Diagnostic Impression: Primary Impression: Abdominal pain ER Course With the history exam and presentation, multiple differentials considered, including but not limited to appendicitis, gastritis, cholecystitis, diverticulitis Patient had fairly extensive blood work initiated Always normal limits he has had previous history of pancreatitis and therefore lipase was also checked Patient had intermittent resolution of his discomfort He appeared calm while talking to him However as soon as walking from the bedside patient would begin moaning, and at times sounded to be also laughing Patient's abdomen remains soft there were no signs of any acute pathology requiring imaging patient has had multiple imaging in the past At this time the exact etiology of the discomfort is unclear Patient however did do better and requires close outpatient followup Labs Test 03/25/17 07:59 White Blood Count 13.9 K/UL (4.8-10.8) Red Blood Count 5.22 M/UL (4.70-6.10) Hemoglobin 14.7 G/DL (14.2-18.0) Hematocrit 45.3 % (42.0-52.0) Mean Corpuscular Volume 87 FL (80-99) Mean Corpuscular Hemoglobin 28.2 PG (27.0-31.0) Mean Corpuscular Hemoglobin Concent 32.5 G/DL (32.0-36.0) Red Cell Distribution Width 11.6 % (11.6-14.8) Platelet Count 256 K/UL (150-450) Mean Platelet Volume 8.2 FL (6.5-10.1) Neutrophils (%) (Auto) % (45.0-75.0) Lymphocytes (%) (Auto) % (20.0-45.0) Monocytes (%) (Auto) % (1.0-10.0) Eosinophils (%) (Auto) % (0.0-3.0) Basophils (%) (Auto) % (0.0-2.0) Differential Total Cells Counted 100 Neutrophils % (Manual) 86 % (45-75) Lymphocytes % (Manual) 10 % (20-45) Monocytes % (Manual) 3 % (1-10) Eosinophils % (Manual) 1 % (0-3) Basophils % (Manual) 0 % (0-2) Band Neutrophils 0 % (0-8) Platelet Estimate Adequate Platelet Morphology Normal Red Blood Cell Morphology Normal Sodium Level 141 MMOL/L (136-145) Potassium Level 3.7 MMOL/L (3.5-5.1) Chloride Level 102 MMOL/L (98-107) Carbon Dioxide Level 29 MMOL/L (21-32) Anion Gap 10 mmol/L (5-15) Blood Urea Nitrogen 11 mg/dL (7-18) Creatinine 1.2 MG/DL (0.55-1.30) Estimat Glomerular Filtration Rate > 60 mL/min (>60) Glucose Level 117 MG/DL (74-106) Calcium Level 9.2 MG/DL (8.5-10.1) Total Bilirubin 0.4 MG/DL (0.2-1.0) Aspartate Amino Transf (AST/SGOT) 21 U/L (15-37) Alanine Aminotransferase (ALT/SGPT) 19 U/L (12-78) Alkaline Phosphatase 46 U/L (46-116) Total Protein 7.7 G/DL (6.4-8.2) Albumin 4.1 G/DL (3.4-5.0) Globulin 3.6 g/dL Albumin/Globulin Ratio 1.1 (1.0-2.7) Lipase 212 U/L (73-393) Last Vital Signs Date Time Temp Pulse Resp B/P (MAP) Pulse Ox O2 Delivery O2 Flow Rate FiO2 03/25/17 07:48 97.2 64 18 116/69 99 Room Air Status: improved Disposition: HOME, SELF-CARE Condition: Improved Scripts Ondansetron Odt* (ZOFRAN ODT*) 4 Mg Tab.rapdis 4 MG ORAL Q6H Y for Nausea & Vomiting, #10 TAB 0 Refills Prov: TEE CHIU D.O. 03/25/17 Dicyclomine Hcl* (BENTYL*) 10 Mg Capsule 10 MG ORAL FOUR TIMES A DAY for 5 Days, CAP Prov: TEE CHIU D.O. 03/25/17 Additional Instructions: Patient is provided with the discharge instructions notified to follow up with primary doctor in the next 2-3 days otherwise return to the er with any worsening symptoms. Please note that this report is being documented using [employer] technology. This can lead to erroneous entry secondary to incorrect interpretation by the dictating instrument. TEE CHIU D.O. 27, 2018 08:01
[2017-03-25 08:17] LABS: HEMATOCRIT 45.3 % (42.0-52.0); HEMOGLOBIN 14.7 G/DL (14.2-18.0); MEAN CORPUSCULAR VOLUME 87 FL (80-99); PLATELET COUNT 256 K/UL (150-450); RED BLOOD COUNT 5.22 M/UL (4.70-6.10); RED CELL DISTRIBUTION WIDTH 11.6 % (11.6-14.8); WHITE BLOOD COUNT 13.9 K/UL (4.8-10.8)
[2017-03-25 08:31] LABS: ANION GAP 10 mmol/L (5-15); BLOOD UREA NITROGEN 11 mg/dL (7-18); CALCIUM 9.2 MG/DL (8.5-10.1); CARBON DIOXIDE 29 MMOL/L (21-32); CHLORIDE 102 MMOL/L (98-107); CREATININE 1.2 MG/DL (0.55-1.30); POTASSIUM 3.7 MMOL/L (3.5-5.1); SODIUM 141 MMOL/L (136-145)
[2017-03-25 08:34] LABS: ALANINE AMINOTRANSFERASE 19 U/L (12-78); ALBUMIN 4.1 G/DL (3.4-5.0); ALBUMIN/GLOBULIN RATIO 1.1 (1.0-2.7); ALKALINE PHOSPHATASE 46 U/L (46-116); ASPARTATE AMINO TRANSFERASE 21 U/L (15-37); BILIRUBIN,TOTAL 0.4 MG/DL (0.2-1.0)
[2017-03-25] MEDS ORDERED: BENTYL10 MG ORAL (08:51)
[2017-03-25] MEDS ORDERED: ZOFRAN ODT4 MG ORAL (08:51)
[2017-03-25 09:05] VITALS: BP 118/98
[2017-03-25] MEDS ORDERED: Morphine Sulfate 2mg/ml Inj IVP ONE (09:15)
[2017-03-25] MEDS ORDERED: Ketorolac 30mg Inj IV ONE (09:15)
[2017-03-25 10:04] VITALS: BP 111/56
== END 2017-03-25 10:13 | disposition home or self-care (01) ==
LOC: EMR 08:02
DX: R10.13 Epigastric pain (principal); Z88.8 Allergy status to other drugs, medicaments and biological substances
CPT/HCPCS: 36415; 80053; 83690; 85007; 85025; 96374; 96375; 99284; J1200; J1885; J2270; J2405

== ENCOUNTER 2018-02-16 19:19 | Emergency (ER) | payer SELFPAY ==
[~2018-02-16] VITALS: Ht 180.3 cm; Wt 63.5 kg
[2018-02-16] MEDS ORDERED: Morphine Sulfate 4mg/ml Inj (IV/IM USE ONLY) IVP ONE (19:45)
[2018-02-16] MEDS ORDERED: Ketorolac 30mg Inj IV ONE (19:45)
[2018-02-16 20:03] LABS: BASOPHILS % (AUTO) 0.8 % (0.0-2.0); EOSINOPHILS % (AUTO) 0.2 % (0.0-3.0); HEMATOCRIT 47.1 % (42.0-52.0); HEMOGLOBIN 15.4 G/DL (14.2-18.0); LYMPHOCYTES % (AUTO) 9.7 % (20.0-45.0); MEAN CORPUSCULAR VOLUME 86 FL (80-99); MONOCYTES % (AUTO) 4.9 % (1.0-10.0); NEUTROPHILS % (AUTO) 84.4 % (45.0-75.0); PLATELET COUNT 187 K/UL (150-450); RED BLOOD COUNT 5.47 M/UL (4.70-6.10); WHITE BLOOD COUNT 13.3 K/UL (4.8-10.8)
[2018-02-16 20:28] LABS: ANION GAP 14 mmol/L (5-15); BLOOD UREA NITROGEN 13 mg/dL (7-18); CARBON DIOXIDE 26 MMOL/L (21-32); CHLORIDE 102 MMOL/L (98-107); CREATININE 1.5 MG/DL (0.55-1.30); SODIUM 142 MMOL/L (136-145)
[2018-02-16] MEDS ORDERED: HYDROmorphone 1mg/ml Carpuject IVP ONE (20:30)
[2018-02-16 20:32] LABS: ALANINE AMINOTRANSFERASE 23 U/L (12-78); ALBUMIN 4.9 G/DL (3.4-5.0); ALBUMIN/GLOBULIN RATIO 1.4 (1.0-2.7); ALKALINE PHOSPHATASE 85 U/L (46-116); ASPARTATE AMINO TRANSFERASE 24 U/L (15-37); BILIRUBIN,TOTAL 0.5 MG/DL (0.2-1.0)
[2018-02-16 20:57] VITALS: BP 134/71
[2018-02-16] MEDS ORDERED: RANITIDINE HCL150 MG ORAL (21:13)
[2018-02-16] MEDS ORDERED: DICYCLOMINE HCL10 MG PO (21:13)
[2018-02-16] MEDS ORDERED: ONDANSETRON ODT4 MG BC (21:13)
[2018-02-16] MEDS ORDERED: NORCO 5-325 TA1 EACH ORAL (21:13)
[2018-02-16 21:29] VITALS: BP 134/71
--- NOTE | 2018-02-16 22:23 | Emergency Room Report ---
History of Present Illness General Chief Complaint: Abdominal Pain Source: Patient Present Illness HPI 32-year-old male presents ED for evaluation. Patient presents ED crying in pain. States she's having epigastric pain. 10 out of 10, sharp, nonradiating. For the last 2 hours. Multiple episodes of nausea and vomiting. States he has pancreatitis history. Denies alcohol or drug use. Denies chest pain or shortness of breath. No other aggravating relieving factors. Denies any other associated symptoms Allergies: Coded Allergies: PROCHLORPERAZINE (Verified Allergy, Unknown, 06/05/16) Patient History Past Medical History: other - pancreatitis Past Surgical History: none Pertinent Family History: none Social History: Denies: smoking, alcohol use, drug use Immunizations: UTD Reviewed Nursing Documentation: PMH: Agreed; PSxH: Agreed Nursing Documentation-PMH Hx Cardiac Problems: No Hx Cancer: No Hx Gastrointestinal Problems: Yes - PANCRITOUS Hx Neurological Problems: No Review of Systems All Other Systems: negative except mentioned in HPI Physical Exam Vital Signs Date Time Temp Pulse Resp B/P (MAP) Pulse Ox O2 Delivery O2 Flow Rate FiO2 02/16/18 19:25 110 18 134/71 99 Room Air 02/16/18 20:21 98.0 Sp02 EP Interpretation: reviewed, normal General Appearance: alert, GCS 15, non-toxic, mild distress Head: normocephalic, atraumatic Eyes: bilateral eye normal inspection, bilateral eye PERRL ENT: hearing grossly normal, normal pharynx, no angioedema, normal voice Neck: full range of motion, supple/symm/no masses Respiratory: chest non-tender, lungs clear, normal breath sounds, speaking full sentences Cardiovascular #1: regular rate, rhythm, no edema Cardiovascular #2: 2+ carotid (R), 2+ carotid (L), 2+ radial (R), 2+ radial (L) , 2+ dorsalis pedis (R), 2+ dorsalis pedis (L) Gastrointestinal: normal bowel sounds, soft, non-distended, no guarding, no rebound, tenderness - epigastric Rectal: deferred Genitourinary: normal inspection, no CVA tenderness Musculoskeletal: back normal, gait/station normal, normal range of motion, non- tender Neurologic: alert, oriented x3, responsive, motor strength/tone normal, sensory intact, speech normal Psychiatric: judgement/insight normal, memory normal, mood/affect normal, no suicidal/homicidal ideation Reflexes: 3+ bicep (R), 3+ bicep (L), 3+ tricep (R), 3+ tricep (L), 3+ knee (R) , 3+ knee (L) Skin: normal color, no rash, warm/dry, well hydrated Lymphatic: no adenopathy Medical Decision Making Diagnostic Impression: Primary Impression: Gastritis Qualified Codes: K29.00 - Acute gastritis without bleeding Additional Impression: Cyclic vomiting syndrome Qualified Codes: G43.A0 - Cyclical vomiting, not intractable ER Course Hospital Course 32-year-old M presents to ED with epigastric pain with N/V. differential diagnosis: gastritis, SBO, cholecystits Clinical course Patient placed on stretcher. On program trainer. After initial history and physical I ordered labs, IV fluids, pepcid, zofran, pain meds Labs - no leukocytosis, no electrolyte abnormalities, LFTs normal, lipase normal Patient continues to have pain. I reviewed EMR. Patient has been here multiple times for similar presentation. Patient has had extensive workups including CT which up and unremarkable. I ordered him 1 more round of pain medications. Upon reassessment, patient states pain has improved. findings consistent with gastritis Discussed findings with patient. We'll discharged to home with pain meds, Zofran, Zantac. Safe for discharge or close outpatient follow-up I feel this is a highly complex case requiring extensive working including EKG/ Rhythm strip, Xray/CT/US, Blood/urine lab work, repeat exams while in ED, and administration of strong opiates/narcotics for pain control, admission to hospital or close patient follow up. Diagnosis - gastritis, cyclical vomiting syndrome Stable and discharged to home with prescriptions for zofran, zantac, norco, bentyl. Followup with PMD. Return to ED if symptoms recur or worsen Labs Test 02/16/18 19:45 White Blood Count 13.3 K/UL (4.8-10.8) Red Blood Count 5.47 M/UL (4.70-6.10) Hemoglobin 15.4 G/DL (14.2-18.0) Hematocrit 47.1 % (42.0-52.0) Mean Corpuscular Volume 86 FL (80-99) Mean Corpuscular Hemoglobin 28.1 PG (27.0-31.0) Mean Corpuscular Hemoglobin Concent 32.6 G/DL (32.0-36.0) Red Cell Distribution Width 11.0 % (11.6-14.8) Platelet Count 187 K/UL (150-450) Mean Platelet Volume 11.3 FL (6.5-10.1) Neutrophils (%) (Auto) 84.4 % (45.0-75.0) Lymphocytes (%) (Auto) 9.7 % (20.0-45.0) Monocytes (%) (Auto) 4.9 % (1.0-10.0) Eosinophils (%) (Auto) 0.2 % (0.0-3.0) Basophils (%) (Auto) 0.8 % (0.0-2.0) Sodium Level 142 MMOL/L (136-145) Potassium Level 4.0 MMOL/L (3.5-5.1) Chloride Level 102 MMOL/L (98-107) Carbon Dioxide Level 26 MMOL/L (21-32) Anion Gap 14 mmol/L (5-15) Blood Urea Nitrogen 13 mg/dL (7-18) Creatinine 1.5 MG/DL (0.55-1.30) Estimat Glomerular Filtration Rate > 60 mL/min (>60) Glucose Level 124 MG/DL (74-106) Calcium Level 10.0 MG/DL (8.5-10.1) Total Bilirubin 0.5 MG/DL (0.2-1.0) Aspartate Amino Transf (AST/SGOT) 24 U/L (15-37) Alanine Aminotransferase (ALT/SGPT) 23 U/L (12-78) Alkaline Phosphatase 85 U/L (46-116) Total Protein 8.5 G/DL (6.4-8.2) Albumin 4.9 G/DL (3.4-5.0) Globulin 3.6 g/dL Albumin/Globulin Ratio 1.4 (1.0-2.7) Lipase 107 U/L (73-393) Last Vital Signs Date Time Temp Pulse Resp B/P (MAP) Pulse Ox O2 Delivery O2 Flow Rate FiO2 02/16/18 21:29 98.0 100 18 134/71 99 Room Air Status: improved Disposition: HOME, SELF-CARE Condition: Stable Scripts Hydrocodone Bit/Acetaminophen 5-325* (NORCO 5-325*) 1 Each Tablet 1 TAB ORAL Q6H PRN for For Pain, #10 TAB 0 Refills Prov: Bob Peña MD 02/16/18 Ondansetron Odt* (ZOFRAN ODT*) 4 Mg Tab.rapdis 4 MG BC EVERY 6 HOURS PRN for Nausea & Vomiting, #30 TAB 0 Refills Prov: Bob Peña MD 02/16/18 Ranitidine Hcl* (ZANTAC*) 150 Mg Tablet 150 MG ORAL TWICE A DAY, #30 TAB Prov: oBb Peña MD 02/16/18 Dicyclomine Hcl* (DICYCLOMINE HCL*) 10 Mg Capsule 10 MG PO QID for 5 Days, CAP Prov: Bob Peña MD 02/16/18 Referrals: NOT CHOSEN IPA/,REFERRING (PCP) [facility] Patient Instructions: Gastritis, Adult, [id number] Bob Peña MD Feb 16, 2018 22:23
[2018-02-16 22:37] LABS: APPEARANCE,URINE SLIGHTLY CLOUDY; BILIRUBIN, URINE NEGATIVE (NEGATIVE); GLUCOSE, URINE (UA) NEGATIVE (NEGATIVE); KETONES,URINE 4+ (NEGATIVE); LEUKOCYTE ESTERASE ,URINE 1+ (NEGATIVE); NITRITE,URINE NEGATIVE (NEGATIVE); PH,URINE 6 (4.5-8.0); PROTEIN,URINE 3+ (NEGATIVE); UROBILINOGEN,URINE 1 MG/DL (0.0-1.0)
[2018-02-16 22:48] LABS: COLOR,URINE YELLOW
== END 2018-02-16 21:30 | disposition home or self-care (01) ==
LOC: EMR 20:33
DX: G43.A0 Cyclical vomiting, in migraine, not intractable (principal)
CPT/HCPCS: 36415; 80053; 81003; 83690; 85025; 96361; 96374; 96375; 99284; J1170; J1885; J2270; J2405; S0028